=== PATIENT | female | born 1985 | race Caucasian/White ===

== ENCOUNTER 2021-01-31 16:32 | Emergency (ER) | payer MEDICAID, SELFPAY ==
[2021-01-31 17:39] VITALS: BP 131/84; PULSE 96; RESP 16; TEMP 36.7; O2SAT 97; BMI 31.8
--- NOTE | 2021-01-31 17:58 | ED_ITS ---
HPI - Skin/Abscess/Foreign Bdy General Chief complaint: Skin/Abscess/Foreign Body Stated complaint: Finger injury Time Seen by Provider: 01/31/21 17:57 History of Present Illness HPI narrative: Patient complains of left hand redness and swelling after injecting heroin yesterday, no fever no chills no numbness no weakness Related Data Previous Rx's Medication Instructions Recorded clindamycin HCl 300 mg PO Q6H 7 Days #28 cap 01/31/21 Allergies Allergy/AdvReac Type Severity Reaction Status Date / Time latex Allergy Shortness Verified 01/31/21 17:44 of Breath Review of Systems Review of Systems: Positive for left hand pain and redness No fever no chills no dizziness no weakness no headache no cough no chest pain no other rash no numbness or weakness Yes all other systems are reviewed and are negative [facility] Past Medical History Source: nursing notes reviewed Medical History (Updated 02/01/21 @ 00:01 by Pam Mario) Anxiety Depression Surgical History (Updated 01/31/21 @ 17:42 by Radha Napier) Tubal ligation status Social History Social History Advance Directives: No Advance Directives Information Provided: Yes Patient : No Physical Exam Vital Signs: Vital Signs: Last Vital Signs Temp 98.1 F 01/31/21 17:39 Pulse 96 01/31/21 17:39 Resp 16 01/31/21 17:39 BP 131/84 01/31/21 17:39 Pulse Ox 97 01/31/21 17:39 Body Mass Index 31.8 General appearance no acute distress Head is normocephalic atraumatic The neck is supple Respiratory no acute distress Extremities the left hand has dorsal redness and warmth with minor swelling, there is no fluctuance it is mildly indurated there is no discharge there is no lymphangitis there is full range of motion in the wrist hand and fingers and neurovascular intact distal Neuro no focal motor or sensory deficit Course Course Course Narrative: Patient is treated with clindamycin antibiotic, IV drug addict with a localized cellulitis to the back of the hand no systemic illness no lymphangitis is discharged home and will return for wound check in 2 days Discharge Plan Discharge Clinical Impression: Cellulitis Patient Disposition: Home, Self-Care Additional Instructions: Return to this ER or your doctor for a recheck in 2-3 days Return to ER any time for spreading redness, fever, worse pain and swelling, red stripe up arm, any sign of worsening infection or any worse condition or concerns You got a tetanus shot today Prescriptions: New clindamycin HCl 300 mg capsule 300 mg PO Q6H 7 Days Qty: 28 RF: 0 Interventions: ED Discharge Assessment Last Done: 01/31/21 18:32 Discharge Date/Time: 01/31/21 18:35
[2021-01-31] MEDS: Diphth,Pertus(ACell),Tet Adult 0.5 ML SYRINGE IM (18:26)
== END 2021-01-31 18:35 | disposition home or self-care (01) ==
PROVIDERS: Emergency Provider Internal Medicine
DX: L03.114 Cellulitis of left upper limb (principal); M79.642 Pain in left hand; F19.10 Other psychoactive substance abuse, uncomplicated
CPT/HCPCS: 90471; 90715; 99283; 99284